=== PATIENT | female | born 1950 | race Caucasian/White ===

== ENCOUNTER 2020-03-31 11:02 | Emergency (ER) | payer MEDICARE, OTHER, BC ==
[2020-03-31 11:44] LABS: #Basophils 0.1 thou/uL (0.0-0.2); #Lymphocytes 1.3 thou/uL (1.20-3.40); #Monocytes 0.3 thou/uL (0.11-0.59); #Neutrophils 2.7 thou/uL (1.40-6.50); %Basophils 1.2 % (0.0-1.0); %Lymphocytes 29.3 % (21.0-51.0); %Monocytes 7.3 % (0.0-10.0); %Neutrophils 61.2 % (42.0-75.0); Hemoglobin 15.3 g/dL (12.0-16.0); Mean Corpuscular HGB CONC 34.3 g/dL (32.0-36.0); Mean Corpuscular Hemoglobin 32.9 pg (27.0-31.0); Mean Corpuscular Volume 95.8 fL (78.0-98.0); Mean Platelet Volume 7.4 fL (7.4-10.4); Platelet Count 199 thou/uL (130-400); RBC Distribution Width 11.4 % (11.5-14.5); Red Blood Cell (RBC) Count 4.66 mill/uL (4.20-5.40); White Blood Cell (WBC) Count 4.4 thou/uL (4.8-10.8)
--- NOTE | 2020-03-31 11:56 | RAD ---
Exam: Chest one view HISTORY:Chest pain. Difficulty taking a deep breath. Comparison: None FINDINGS: Cardiac silhouette: Normal Aorta: Unremarkable Pulmonary vessels: Normal Costophrenic angles: Clear LUNGS: No masses or consolidation. Pneumothorax: None Osseous abnormalities: None IMPRESSION: No acute cardiopulmonary process.
[2020-03-31 11:59] LABS: ALT (SGPT) 17 U/L (8-55); AST (SGOT) 22 U/L (5-34); Albumin 4.7 g/dL (3.4-4.8); Alkaline Phosphatase 62 U/L (40-110); Anion Gap 14 mmol/L (10-20); BUN (Urea Nitrogen) 7 mg/dL (9.8-20.1); Calc. Creatinine Clearance 0 mL/min (70-130); Calcium 9.6 mg/dL (7.8-10.44); Carbon Dioxide 26 mmol/L (23-31); Chloride 96 mmol/L (98-107); Estimated GFR-MDRD 74; Globulin 3.3 g/dL (2.4-3.5); Glucose 107 mg/dL (83-110); Lipase 47 U/L (8-78); Potassium 3.7 mmol/L (3.5-5.1); Sodium 132 mmol/L (136-145)
== END 2020-03-31 13:30 | disposition home or self-care (01) ==
LOC: ERS 11:02
DX: R06.00 Dyspnea, unspecified (principal); R07.89 Other chest pain; E78.00 Pure hypercholesterolemia, unspecified; Z79.899 Other long term (current) drug therapy
CPT/HCPCS: 71045; 80053; 83690; 83880; 84484; 85025; 85379; 93005; 94640; J7620

== ENCOUNTER 2020-05-02 14:16 | Emergency (ER) | payer MEDICARE, BC ==
--- NOTE | 2020-05-02 15:28 | CT ---
CT maxillofacial noncontrast: 05/02/2020 HISTORY: 70-year-old female with acute traumatic blunt injury to the mandible from fall. FINDINGS: There is soft tissue edema consistent with contusion superficial to the mentum of the mandible, cente red to the left of midline. There is no fracture of the mandible. No dislocation of TMJs. No fracture of any portion of facial bones. No air-fluid levels in paranasal sinuses. Orbits are clear. IMPRESSION: 1. No fracture. 2. Acute, traumatic, superficial soft tissue contusion along the left side of the mandibular mentum.
== END 2020-05-02 15:40 | disposition home or self-care (01) ==
LOC: ERS 14:16
DX: S00.83XA Contusion of other part of head, initial encounter (principal); E78.00 Pure hypercholesterolemia, unspecified; W17.89XA Other fall from one level to another, initial encounter
CPT/HCPCS: 70486